=== PATIENT | female | born 1985 | race Caucasian/White ===

== ENCOUNTER 2022-08-29 13:51 | Emergency (ER) | payer BC ==
[2022-08-29] MEDS: Diphtheria,Pertussis(Acell),Tetanus Vaccine 0.5 ML Syringe IM ONE (14:15)
[2022-08-29] MEDS: Bacitracin Oint 1 GM U/D Packet TOP ONE (14:15)
[2022-08-29] MEDS: Lidocaine 2% with EPINEPHrine 1:200,000 20 ML SDV INJECT ONE (14:15)
== END 2022-08-29 14:43 | disposition home or self-care (01) ==
LOC: DL.ED 13:51
DX: S81.812A Laceration without foreign body, left lower leg, initial encounter (principal); Z88.8 Allergy status to other drugs, medicaments and biological substances; Z23 Encounter for immunization; W26.8XXA Contact with other sharp object(s), not elsewhere classified, initial encounter
CPT/HCPCS: 12001; 90471; 90715; 99282; A9270; J3490